=== PATIENT | male | born 1975 | race Caucasian/White ===

== ENCOUNTER 2020-05-02 04:47 | Emergency (ER) | payer OTHER ==
[2020-05-02 04:56] VITALS: RESP 20
[2020-05-02] MEDS ORDERED: ACETAMINOPHEN TAB 500 MG TAB PO STA (05:28)
[2020-05-02] MEDS ORDERED: IBUPROFEN 800 MG TAB PO STA (05:28)
--- NOTE | 2020-05-02 05:29 | ED ---
Upper Extremity HPI - General Chief Complaint: Extremity Injury, Upper Stated Complaint: [facility] arm injury Source: patient, RN notes reviewed, old records reviewed Mode of arrival: ambulatory Limitations: no limitations - History of Present Illness Initial Comments: This is a 45-year-old male DF for evaluation. Patient has no real significant medical history takes no medications. Patient had a fall injury at work with days ago. Patient complaining of persistent right shoulder pain. Has full range of motion which is persistent pain worsening pain. Otherwise no complaints did not his head no headache no chest pain no shortness of breath MD Complaint: Injury to:: right, shoulder -: days(s) Other Extremity Injury: Shoulder: Right Other Injuries: none Handedness: right Place: work Severity scale (1-10): 4 Improves With: none Worsens With: none Context: fall Associated Symptoms: denies other symptoms Treatments Prior to Arrival: other (none) - Related Data Previous Rx's Medication Instructions Recorded Acetaminophen Tab [Tylenol] 1,000 mg PO TID 5 Days tablet 04/08/14 Ibuprofen [Motrin] 600 mg PO Q6HR PRN #40 day 04/08/14 Penicillin V Potassium [Pen Vee K] 500 mg PO QID 10 Days day 04/08/14 Allergies Allergy/AdvReac Type Severity Reaction Status Date / Time No Known Allergies Allergy Verified 05/02/20 04:56 Review of Systems ROS Statement: Those systems with pertinent positive or pertinent negative responses have been documented in the HPI. ROS Other: All systems not noted in ROS Statement are negative. Past Medical History Past Medical History: No Reported History History of Any Multi-Drug Resistant Organisms: None Reported Past Surgical History: Ear Surgery Past Psychological History: No Psychological Hx Reported Smoking Status: Current every day smoker Past Alcohol Use History: Rare Past Drug Use History: Marijuana General Exam Limitations: no limitations General appearance: alert, in no apparent distress Head exam: Present: atraumatic, normocephalic, normal inspection Eye exam: Present: normal appearance, PERRL, EOMI. Absent: scleral icterus, conjunctival injection, periorbital swelling ENT exam: Present: normal exam, mucous membranes moist Neck exam: Present: normal inspection. Absent: tenderness, meningismus, lymphadenopathy Respiratory exam: Present: normal lung sounds bilaterally. Absent: respiratory distress, wheezes, rales, rhonchi, stridor Cardiovascular Exam: Present: regular rate, normal rhythm, normal heart sounds. Absent: systolic murmur, diastolic murmur, rubs, gallop, clicks GI/Abdominal exam: Present: soft, normal bowel sounds. Absent: distended, tenderness, guarding, rebound, rigid Extremities exam: Present: normal inspection, full ROM, normal capillary refill, other (Right shoulder tenderness). Absent: tenderness, pedal edema, joint swelling, calf tenderness Back exam: Present: normal inspection Neurological exam: Present: alert, oriented X3, CN II-XII intact Psychiatric exam: Present: normal affect, normal mood Skin exam: Present: warm, dry, intact, normal color. Absent: rash Course Vital Signs 05/02/20 05/02/20 04:51 06:43 Temperature 98.8 F 98 F Pulse Rate 82 76 Respiratory 20 20 Rate Blood Pressure 146/86 134/78 O2 Sat by Pulse 97 97 Oximetry - Reevaluation(s) Reevaluation #1: Medical record is reviewed Patient symptoms are improved here in the emergency department Patient informed results questions are answered Patient feels comfortable for discharge home Medical Decision Making - Medical Decision Making Auty female with slip and fall injury yesterday at work right shoulder injury and pain. No significant somatic injury and patient can be discharged home, patient can return at work - Radiology Data Radiology results: report reviewed (Chest x-ray right shoulder x-ray negative for acute somatic injury), image reviewed Disposition Clinical Impression: Fall, Right shoulder pain Disposition: HOME SELF-CARE Condition: Good Instructions (If sedation given, give patient instructions): Shoulder Pain (ED) Is patient prescribed a controlled substance at d/c from ED?: No Referrals: None,Stated [Primary Care Provider] - 1-2 days
--- NOTE | 2020-05-02 06:06 | XR ---
EXAM: XR Right Shoulder Complete, 2 or More Views CLINICAL HISTORY: ITS.REASON XR Reason: fall TECHNIQUE: Two or more views of the right shoulder. COMPARISON: No relevant prior studies available. FINDINGS: Bones/joints: Old healed fracture of the midshaft of the right clavicle. No acute fracture or dislocation is seen. The proximal humerus is intact and normally positioned with respect to the glenoid. The acromioclavicular and coracoclavicular spaces are normal. Soft tissues: Unremarkable. IMPRESSION: 1. Old healed fracture of the midshaft of the right clavicle. 2. No acute fracture or dislocation is seen.
--- NOTE | 2020-05-02 06:07 | XR ---
EXAM: XR Chest, 1 View CLINICAL HISTORY: ITS.REASON XR Reason: fall TECHNIQUE: Frontal view of the chest. COMPARISON: No relevant prior studies available. FINDINGS: Lungs: Underinflated lungs with bronchovascular crowding centrally. There is likely some minimal subsegmental atelectasis inferiorly. No focal consolidation is seen. Pleural space: No pneumothorax or pleural effusion. Heart: Unremarkable. No cardiomegaly. Mediastinum: Unremarkable. Bones/joints: Unremarkable. Upper abdomen: No pneumoperitoneum under the diaphragm. IMPRESSION: Underinflated lungs with bronchovascular crowding inferiorly possibly some subsegmental atelectasis. No acute traumatic findings identified.
[2020-05-02 06:44] VITALS: BP 134/78; PULSE 76; TEMP 98
== END 2020-05-02 06:44 | disposition home or self-care (01) ==
LOC: EC 04:47
DX: M25.511 Pain in right shoulder (principal); F17.200 Nicotine dependence, unspecified, uncomplicated; W19.XXXA Unspecified fall, initial encounter; Y92.69 Other specified industrial and construction area as the place of occurrence of the external cause; Y99.0 Civilian activity done for income or pay
CPT/HCPCS: 71045; 99284

== ENCOUNTER 2021-03-12 07:28 | Emergency (ER) | payer OTHER ==
[2021-03-12 07:39] VITALS: RESP 16; TEMP 98.5
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
[2021-03-12 09:13] VITALS: BP 127/80; PULSE 72
== END 2021-03-12 09:13 | disposition home or self-care (01) ==
LOC: EC 07:28
DX: S63.502A Unspecified sprain of left wrist, initial encounter (principal); S16.1XXA Strain of muscle, fascia and tendon at neck level, initial encounter; S00.03XA Contusion of scalp, initial encounter; F17.200 Nicotine dependence, unspecified, uncomplicated; V49.40XA Driver injured in collision with unspecified motor vehicles in traffic accident, initial encounter; Y92.410 Unspecified street and highway as the place of occurrence of the external cause
CPT/HCPCS: 70450; 72125; 99284